=== PATIENT | female | born 1975 | race Caucasian/White ===

== ENCOUNTER → 2017-05-30 | Outpatient (CLI) | payer BC ==
[~2017-05-30] MED LIST: CALC500T54 PO; FENO145T2 PO; LEVO100T PO; METF500T4 PO; MULT-246 PO; VENL75CA PO
[2017-05-30 13:49] LABS: BASO % 1 % (0-3); EOS % 2 % (0-3); HEMOGLOBIN 13.8 g/dL (12.0-15.5); LYMPH % 29 % (24-48); MEAN CORPUSCULAR HEMOGLOBIN 32 pg (25-35); MEAN CORPUSCULAR HGB CONC 36 g/dL (31-37); MEAN CORPUSCULAR VOLUME 89 fL (79-100); MONO % 6 % (0-9); NEUT % 63 % (31-73); PLATELET COUNT 234 x10^3/uL (140-400); RED CELL DISTRIBUTION WIDTH 12.9 % (11.5-14.5); WHITE BLOOD COUNT 7.1 x10^3/uL (4.0-11.0)
[2017-05-30 13:58] LABS: INR 1.2 (0.8-1.1); PROTHROMBIN TIME PATIENT 14.7 SEC (11.7-14.0)
[2017-05-30 14:07] LABS: ALBUMIN 4.1 g/dL (3.4-5.0); ALBUMIN/GLOBULIN RATIO 1.5 (1.0-1.7); CALCIUM 8.9 mg/dL (8.5-10.1); CREATININE 0.8 mg/dL (0.6-1.0); POTASSIUM 4.6 mmol/L (3.5-5.1); TOTAL BILIRUBIN 0.4 mg/dL (0.2-1.0); TOTAL PROTEIN 6.8 g/dL (6.4-8.2)
== END | disposition home or self-care (01) ==
LOC: SURGPAT 13:19
PROVIDERS: ATTEND Neurological Surgery
DX: M54.16 Radiculopathy, lumbar region (principal)
CPT/HCPCS: 36415; 80053; 85027; 85610; 85730

== ENCOUNTER 2017-06-06 06:59 | Observation (INO) | payer BC ==
[~2017-06-06] VITALS: Ht 172.7 cm; Wt 77.1 kg
[2017-06-06] VITALS (11 sets, daily range): BP systolic 103–120; BP diastolic 52–66
[~2017-06-06 06:59] MED LIST changes: +BACITRACIN 50,000 UNIT in IV NORMAL SALINE 1000ML BAG 1,000 ML IRR ONE; +VANCOMYCIN 1GM IVPB FOR OMNI 250 ML IV PRN
[2017-06-06] MEDS ORDERED: fentaNYL PF VIAL 100 MCG/2 ML VIAL IV PRN ×3 (07:00→12:15)
[2017-06-06] MEDS ORDERED: HYDROmorphone 2 MG/ML VIAL IV PRN (07:00)
[2017-06-06] MEDS ORDERED: MORPHINE SULFATE 2 MG/ML DISP.SYRIN. IV PRN (07:00)
[2017-06-06] MEDS ORDERED: IV RINGERS,LACTATED 1000ML 1,000 ML IV SCH (07:00)
[2017-06-06] MEDS ORDERED: LIDOCAINE 1% 1 ML SYRINGE. ID PRN (07:00)
[2017-06-06] MEDS ORDERED: PROCHLORPERAZINE 10 MG/2 ML VIAL. IV PRN (07:00)
[2017-06-06] MEDS ORDERED: ONDANSETRON PF 4 MG/2 ML VIAL. IV PRN ×2 (07:00→12:15)
[2017-06-06] MEDS ORDERED: BUPIVACAINE 0.5% 50 ML VIAL. ONE (07:16)
[2017-06-06] MEDS ORDERED: GELATIN SPONGE SIZE 100. ONE (07:16)
[2017-06-06] MEDS ORDERED: THROMBIN TOPICAL 20,000 UNIT SPRAY.SYRN KIT TP ONE (07:17)
[2017-06-06] MEDS ORDERED: BUPIVAC MPF-EPI 0.5%-1:200000 30 ML VIAL. ONE (07:17)
[2017-06-06] MEDS ORDERED: PROPOFOL 50 ML IV ONE (07:51)
[2017-06-06] MEDS ORDERED: LIDOCAINE 2% PF Vial for OR 5 ML VIAL. ONE (07:51)
[2017-06-06] MEDS ORDERED: REMIFENTANIL 2 MG VIAL. IV ONE (07:51)
[2017-06-06] MEDS ORDERED: DEXAMETHASONE SOD PHOS 20 MG/5 ML VIAL. ONE (07:51)
[2017-06-06] MEDS ORDERED: PROPOFOL 20 ML IV ONE (07:51)
[2017-06-06] MEDS ORDERED: ONDANSETRON PF 4 MG/2 ML VIAL. ONE ×2 (07:51→07:53)
[2017-06-06] MEDS ORDERED: MIDAZOLAM HCL/PF 2 MG/2 ML VIAL. ONE (07:52)
[2017-06-06] MEDS ORDERED: fentaNYL PF VIAL 100 MCG/2 ML VIAL ONE ×3 (07:52→12:55)
[2017-06-06] MEDS ORDERED: GLYCOPYRROLATE 1 MG/5 ML VIAL. ONE (07:52)
[2017-06-06] MEDS ORDERED: SUCCINYLCHOLINE 200 MG/10 ML VIAL. ONE (07:52)
[2017-06-06] MEDS ORDERED: FAMOTIDINE 20 MG/2 ML VIAL ONE (07:53)
[2017-06-06] MEDS ORDERED: ROCURONIUM 100 MG/10 ML VIAL. ONE (07:57)
[2017-06-06] MEDS ORDERED: PHENYLEPHRINE 10 MG/ML VIAL. ONE (08:00)
[2017-06-06] MEDS ORDERED: SCOPOLAMINE 1.5MG PATCH. TD SCH (09:00)
[2017-06-06] MEDS ORDERED: DESFLURANE > 120 MINUTES IH ONE (09:44)
[2017-06-06] MEDS ORDERED: NEOSTIGMINE 10 MG/10 ML VIAL. ONE (11:47)
--- NOTE | 2017-06-06 12:09 | PDOC ---
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
[2017-06-06] MEDS ORDERED: CALCIUM CARBONATE 500 MG TAB.CHEW PO PRN (12:15)
[2017-06-06] MEDS ORDERED: 0.9 % SODIUM CHLORIDE 10 ML DISP.SYRIN. IV PRN (12:15)
[2017-06-06] MEDS ORDERED: ACETAMINOPHEN 325 MG TABLET. PO PRN (12:15)
[2017-06-06] MEDS ORDERED: diphenhydrAMINE 50 MG/ML VIAL IV PRN (12:15)
[2017-06-06] MEDS ORDERED: NALOXONE 0.4 MG/ML VIAL. IV PRN (12:15)
[2017-06-06] MEDS ORDERED: diphenhydrAMINE HCL 25 MG CAPSULE PO PRN (12:15)
[2017-06-06] MEDS ORDERED: MAG HYDROX/ALUMINUM HYD/SIMETH 30 ML ORAL.SUSP PO PRN (12:15)
[2017-06-06] MEDS ORDERED: ZOLPIDEM 5 MG TABLET. PO PRN (12:15)
[2017-06-06] MEDS ORDERED: MAGNESIUM HYDROXIDE 2,400 MG/30 ML ORAL.SUSP. PO PRN (12:15)
[2017-06-06] MEDS ORDERED: oxyCODONE/APAP 5/325 1 TAB TABLET PO PRN ×2 (12:15)
[2017-06-06] MEDS: fentaNYL PF VIAL 100 MCG/2 ML VIAL IV PRN ×4 (12:38→13:11)
--- NOTE | 2017-06-06 13:50 | OP ---
DATE OF SURGERY: 06/06/2017 PREOPERATIVE DIAGNOSES: Recurrent lumbar 5-sacral 1 herniated disk with lumbar radiculopathy and foot drop. POSTOPERATIVE DIAGNOSES: Recurrent lumbar 5-sacral 1 herniated disk with lumbar radiculopathy and foot drop. PROCEDURE: Redo left L5-S1 hemilaminotomy with diskectomy with intraoperative use of neuro monitoring and intraoperative use of microscope. ANESTHESIA: General. COMPLICATIONS: None intraprocedurally. INDICATIONS FOR THE PROCEDURE: The patient is a 41-year-old female who had a prior prominent disk herniation at L5-S1 with diskectomy. At that time, she had acute bowel and bladder dysfunction as well as radiculopathy, ankle weakness. She underwent diskectomy for this approximately 2 years ago with resolution of the symptoms. More recently she developed recurrent pain in the same distribution in the left lower extremity has prior to her previously surgery. She has also developed foot drop. Reimaging revealed recurrent disk herniation at L5-S1 and was felt that surgical decompression would be of benefit. Please refer to the patient chart for additional details. DESCRIPTION OF PROCEDURE: After informed consent was obtained, the patient was brought into the operating room. She was placed under general anesthesia, was placed in the prone position on the Zia table. All pressure points were checked and padded appropriately. Lumbar region was prepped and draped in usual sterile fashion. The patient's previous incision was reopened with a 10 blade scalpel. Monopolar electrocautery was utilized to dissect the avascular midline to the spinous processes of lumbar 5 and sacral 1, dissection was carried out bluntly with curette leftward across the lamina at this location. The prior hemilaminotomy site was identified. Level was again verified with fluoroscopy prior to the initiation of decompression. The prior hemilaminotomy was extended with a pneumatic drill as well as Kerrison rongeur to ____ the region over the L5-S1 disk space. The underlying ligament was gently dissected free with a curette as well as Carney and removed with a Kerrison rongeur. There was significant scar tissue encountered in this region. The adjacent nerve root was identified and preserved. The prominent annulus was identified anterior to this region at the L5-S1 disk space. A gentle retraction was instituted and an annulotomy was performed at this location with an 11 blade scalpel. Disk material emerged under pressure posterolaterally. This was subsequently removed with a pituitary rongeur. Additional disk material was gently teased posterolaterally with a blunt nerve hook as well as a Jazz and removed with pituitary rongeur. Upon completion of this ____ including a large disk fragment which was removed with the adjacent neural elements were noted to be very well decompressed. This was verified with direct visualization as well as gentle palpation with a Carney. Additionally, neuro monitoring potentials were noted to be improved compared to baseline upon completion of decompression. Pristine hemostasis was achieved with FloSeal, gentle irrigation and some use of bipolar electrocautery. The wound was generously irrigated with antibiotic irrigation prior to the final closure. The muscles and the fascia were then reapproximated with 0 Vicryl in a simple interrupted fashion. Subcutaneous tissues were reapproximated with 2-0 Vicryl in interrupted inverted fashion. Skin was reapproximated with 4-0 Vicryl in a running subcuticular fashion. Mastisol and Steri-Strips were applied and the wound was dressed with Telfa and Tegaderm. At the end of procedure, all needle and sponge counts correct x 2. The patient was extubated in the operating room and taken to recovery in stable condition. There were no intraprocedural complications apparent. INESSA RINCON MD DR: COLETTE/penelope JOB#: [id number] / [id number]
[2017-06-06] MEDS: METHOCARBAMOL 750 MG TABLET PO SCH ×2 (14:00→21:20)
[2017-06-06] MEDS: CALCIUM CARB/VIT D3 500/200 TABLET. PO SCH (17:22)
[2017-06-06] MEDS: metFORMIN 500 MG TABLET PO SCH (17:22)
[2017-06-06] MEDS: FERROUS SULFATE 325 MG TABLET. PO SCH (17:22)
[2017-06-06] MEDS: DOCUSATE SODIUM 100 MG CAPSULE. PO SCH (21:20)
[2017-06-06] MEDS: SENNOSIDES/DOCUSATE 8.6/50MG TABLET. PO SCH (21:20)
[2017-06-07 03:00] VITALS: BP 90/50
[2017-06-07 06:44] VITALS: BP 96/56
[2017-06-07] MEDS ORDERED: LEVOTHYROXINE 100 MCG TABLET PO SCH (07:00)
--- NOTE | 2017-06-07 08:20 | PDOC ---
SUBJECTIVE Subjective Reports improvement of left leg pain. Still some numbness. Left foot drop without acute change. OBJECTIVE Vital Signs Vital Signs Date Time Temp Pulse Resp B/P (MAP) Pulse Ox O2 Delivery O2 Flow Rate FiO2 06/07/17 07:14 Room Air 06/07/17 06:44 98.3 66 17 96/56 (69) 95 Room Air 98.3 06/07/17 03:00 98.7 59 17 90/50 (63) 95 Room Air 98.7 06/06/17 23:00 98.4 60 19 108/54 (72) 97 Room Air 98.4 06/06/17 19:50 Room Air 06/06/17 19:00 98.0 80 18 110/52 (71) 92 Room Air 98.0 06/06/17 18:30 Room Air 06/06/17 18:10 97.9 60 16 116/60 (78) 97 Room Air 97.9 06/06/17 17:24 Room Air 06/06/17 17:00 97.6 120/66 (84) 97 Room Air 97.6 06/06/17 16:30 97.0 20 114/61 (78) 98 Nasal Cannula 2.0 97.0 06/06/17 16:00 98.0 66 120/63 (82) 97 Nasal Cannula 2.0 98.0 06/06/17 15:30 110/61 (77) Nasal Cannula 06/06/17 15:00 97.8 70 18 113/59 (77) 98 Nasal Cannula 2.0 97.8 06/06/17 14:45 104/62 (76) Nasal Cannula 06/06/17 14:30 110/60 (77) Nasal Cannula 06/06/17 14:18 16 2 Nasal Cannula 06/06/17 14:15 Nasal Cannula 2.0 06/06/17 14:15 97.4 65 16 103/55 (71) 98 Nasal Cannula 2.0 97.4 06/06/17 13:50 Nasal Cannula 2.0 06/06/17 13:30 97.4 78 20 122/61 98 Nasal Cannula 2.0 97.4 06/06/17 13:15 97.0 69 18 120/59 99 Nasal Cannula 2.0 97.0 06/06/17 13:11 18 99 Nasal Cannula 2.0 06/06/17 13:05 99 Nasal Cannula 2.0 8/15/17 13:00 97.0 69 18 122/58 99 Nasal Cannula 2 97.0 06/06/17 12:53 18 96 Room Air 06/06/17 12:45 97.0 70 20 109/51 98 Nasal Cannula 2 97.0 06/06/17 12:38 18 96 Room Air 06/06/17 12:30 97.0 75 18 112/56 98 Nasal Cannula 2 97.0 06/06/17 12:15 97.0 76 18 121/56 96 Simple Mask 6 97.0 06/06/17 12:00 97.0 78 16 124/64 99 Simple Mask 7 97.0 06/06/17 12:00 Mask 7 I & O Intake and Output 06/07/17 07:00 Intake Total 120 ml Output Total 475 ml Balance -355 ml Intake Oral 120 ml Output Urine Total 450 ml Estimated Blood Loss 25 ml # Voids 2 PHYSICAL EXAM Physical Exam AAOx4, NAD, COUCH stable left DF weakness, sensation intact LT, dressing with sanguinous stain that was previously reinforced. Incision appears c/d/i flat. ASSESSMENT/PLAN Assessment/Plan POD 1 redo L5-S1 discectomy -therapy for ankle weakness - standard post-op restrictions -pain appears controlled with present regimen -if continues to recover well, may d/c today -f/u 2 weeks [phone] Problems: COMMENT Lab Laboratory Tests Test 06/06/17 12:09 06/06/17 16:54 06/06/17 21:00 06/07/17 06:23 Glucose (Fingerstick) 217 mg/dL (70-99) 146 mg/dL (70-99) 191 mg/dL (70-99) 120 mg/dL (70-99) INESSA RINCON MD Jun 07, 2017 08:20
[2017-06-07] MEDS: DOCUSATE SODIUM 100 MG CAPSULE. PO SCH (08:33)
[2017-06-07] MEDS: FERROUS SULFATE 325 MG TABLET. PO SCH (08:33)
[2017-06-07] MEDS: METHOCARBAMOL 750 MG TABLET PO SCH (08:33)
[2017-06-07] MEDS: CALCIUM CARB/VIT D3 500/200 TABLET. PO SCH (08:33)
[2017-06-07] MEDS: metFORMIN 500 MG TABLET PO SCH (08:33)
[2017-06-07] MEDS: SENNOSIDES/DOCUSATE 8.6/50MG TABLET. PO SCH (08:33)
[2017-06-07] MEDS ORDERED: FENOFIBRATE,MICRONIZED 134 MG CAPSULE PO SCH (09:00)
[2017-06-07] MEDS ORDERED: MULTIVITAMIN with MINERAL TABLET. PO SCH (09:00)
[2017-06-07] MEDS ORDERED: VENLAFAXINE XR 37.5 MG CAP.ER.24H. PO SCH (09:00)
== END 2017-06-07 10:54 | disposition home or self-care (01) ==
LOC: INTOOBSV 06:59 → OPSVCIP 06:59 → EDUNIT# 08:30 → EDSTATUS 08:30 → 4 SOUTHEST 12:25
PROVIDERS: ADMIT Neurological Surgery; ATTEND Neurological Surgery
DX: M51.17 Intervertebral disc disorders with radiculopathy, lumbosacral region (principal); M21.372 Foot drop, left foot
CPT/HCPCS: 63030; 76000; 82962; 87641; 88304; 88311; 96374; 97161; 97165; G0378; G0379; G8987; G8988; G8989; J0330; J1100; J2250; J2405; J2704; J2710; J3010; J3370; J3490; J7030; J7120; S0028; 36415; J2001